=== PATIENT | female | born 1940 | race Caucasian/White ===

== ENCOUNTER 2017-04-13 12:30 | Emergency (ER) | payer MEDICARE ==
--- NOTE | 2017-04-13 13:15 | ERNOTE ---
Abdominal HPI - General Chief Complaint: Abdominal Pain Time Seen by Provider: 04/13/17 12:56 - Immun/Allergies/Home Medications Immunizatons: IMMUNIZATION HX Immunizations Up to Date Yes History of Influenza Vaccine Yes Hx Pneumococcal Vaccination Yes Allergies/Adverse Reactions: Allergies codeine Adverse Reaction (Verified 04/13/17 12:47) Sulfa (Sulfonamide Antibiotics) Adverse Reaction (Verified 04/13/17 12:47) Home Medications: HOME MEDICATIONS Amlodipine Besylate 10 mg PO DAILY 04/13/17 [Last Taken Unknown] Atorvastatin Calcium 40 mg PO HS 04/13/17 [Last Taken Unknown] Citalopram Hydrobromide [Citalopram HBr] 10 mg PO DAILY 04/13/17 [Last Taken Unknown] Insulin Aspart [Novolog] 22 unit SQ ACHS 04/13/17 [Last Taken Unknown] Insulin Glargine,Hum.rec.anlog [Lantus] 68 units SC HS 04/13/17 [Last Taken Unknown] Lisinopril [Prinivil] 10 mg PO DAILY 04/13/17 [Last Taken Unknown] Nitrofurantoin/Nitrofuran Mac [Macrobid] 100 mg PO Q12H #10 cap 04/13/17 [Last Taken Unknown] metFORMIN HCL [Glucophage] 500 mg PO BIDWM 04/13/17 [Last Taken Unknown] - History of Present Illness Narrative: 77-year-old white female presents with abdominal pain. Patient states she's had lower abdomen pain for about one week. The pain is [id number]. It waxes and wanes. It does not go away. She is starting to develop some nausea. No vomiting. No fever or chills. Symptoms are worsening. No genitourinary symptoms. Timing: getting worse Review of Systems - Review of Systems Constitutional: Present: no symptoms reported. Absent: fever, chills EYE: Present: no symptoms reported ENT: Present: no symptoms reported Respiratory: Present: no symptoms reported Cardiology: Present: no symptoms reported Gastrointestinal/Abdominal: Present: nausea, abdominal pain. Absent: vomiting, diarrhea, constipation, eating less, drinking less Genitourinary: Present: no symptoms reported. Absent: frequency, dysuria, hematuria Musculoskeletal: Present: no symptoms reported Skin: Present: no symptoms reported Neurological: Present: no symptoms reported Endocrine: Present: no symptoms reported Hematologic/Lymphatic: Present: no symptoms reported Psych: Present: no symptoms reported All Other Systems: All systems neg except as marked - Patient's Past Medical History Patient History - Medical: Anxiety, Diabetes Type 2 Insulin Dependent Patient History - Cardiac/Respiratory: No pertinent hx Patient History - Cancer: No Hx of Cancer Patient History - Surgical Procedures: Cholecystectomy, , Other Patient History - Other: None LMP (females 10-50): Menopausal - Social History Living Situations: alone Abuse History: No History of abuse Psych History: Hx of Anxiety, Current tx/ever been on anti-depressants or anti- anxiety meds Smoking Status: Former smoker Have you smoked in the past 12 months: No Alcohol Use: none Drug Use: none - Immunizations Immunizations Up to Date: Yes Hx Pneumococcal Vaccination: Yes History of Influenza Vaccine: Yes Physical Exam - Physical Exam General Appearance: Present: wd/wn, alert, no apparent distress Head Exam: Present: normal inspection, no evidence of injury Eye Exam: Normal inspection: bilateral, PERRL: bilateral, EOMI: bilateral Ears, Nose, Throat: Present: normal ENT inspection, dry mucous membranes Neck: Present: normal inspection, nontender Respiratory: Present: no respiratory distress, normal breath sounds, no accessory muscle use, chest nontender, lungs clear Cardiovascular/Chest: Present: regular rate, rhythm, no murmur, normal peripheral pulses Gastrointestinal/Abdominal: Present: normal bowel sounds, tenderness - right lower quadrant Back Exam: Present: normal inspection Extremity Exam: Present: normal inspection Neurological Exam: Present: alert, oriented, normal mood/affect, no motor/ sensory deficits Skin Exam: Present: normal color, warm/dry ED Progress - Results and Orders Patient's Lab Results:: I have reviewed the patient's lab results. - Vital Signs Patient's Vital Signs:: I have reviewed the patient's vital signs. Vital Signs: Vital Signs 04/13/17 12:39 Temperature 36.8 C Pulse Rate 98 Respiratory 16 Rate Blood Pressure 161/80 O2 Sat by Pulse 97 Oximetry - CT/Ultrasound CT/Ultrasound Narrative: CT abdomen and pelvis without contrast per radiologist was reviewed. - Progress/Reassessment Chief Complaint: Abdominal Pain Plan - Plan Plan: Patient's UA was contaminated. She does not want to have catheterization. We will culture the urine. She does have lower abdominal discomfort. She has not had this before. I will place her empirically on antibiotic for urinary tract infection. Advised her drink water. She verbalizes understanding and agrees with this plan. If her pain worsens or she develops systemic signs of illness such as fevers chills or worsening pain she will need to return. Departure - Departure Clinical Impression: Abdominal pain Condition: Good Instructions: Abdominal Pain, Adult, [id number] Referrals: Kaleigh Cardoso DO [Primary Care Provider] - Prescriptions: Nitrofurantoin/Nitrofuran Mac [Macrobid] 100 mg PO Q12H #10 cap
[2017-04-13 13:27] LABS: Hematocrit 44.1 % (37.0-47.0); Hemoglobin 15.3 gm/dL (12.5-16.0); Mean Cell Volume 87.8 fl (78-100); Mean Corpuscular Hemoglobin 30.5 pg (27-31); Mean Corpuscular Hgb Conc 34.7 g/dl (32-36); Mean Platelet Volume 10.6 fl (6.0-9.5); Neutrophil % 57.6 % (42-75.0); Platelet Count 154 K/mm3 (150-450); Red Blood Count 5.02 M/mm3 (4.2-5.4); Red Cell Distribution Width 13.4 % (11.5-14.0); White Blood Count 5.2 K/mm3 (4.0-10.5)
[2017-04-13 13:41] LABS: Albumin * 3.9 gm/dl (3.4-5.0); Anion Gap 20.5 mmol/L (6.8-13.8); BUN/Creatinine Ratio 14.6 (9.0-21.6); Bilirubin, Total 0.5 mg/dL (0.0-1.1); Ca. Corrected For Albumin 9.1 mg/dL (8.4-10.2); Calcium * 9.3 mg/dL (7.9-10.9); Carbon Dioxide 20.8 mmol/L (24-32.6); Potassium 4.3 mmol/L (3.4-4.6); Total Protein 7.9 gm/dL (6.2-8.2)
[2017-04-13 13:42] LABS: Urine Bilirubin Negative (NEGATIVE); Urine Ketone Negative (NEGATIVE); Urine Nitrite Negative (NEGATIVE); Urine Protein 15 mg/dL (NEGATIVE); Urine Specific Gravity 1.015 SP.GR. (1.005-1.010); Urine Urobilinogen Normal (NORMAL)
[2017-04-13 13:49] LABS: Urine Appearance Slightly Cloudy; Urine Blood 10 /ul (NEGATIVE); Urine Color Yellow
[2017-04-13 13:50] LABS: Urine Bacteria 3+; Urine RBC None Seen /hpf (0-5)
[2017-04-13 15:01] VITALS: BP 154/68
== END 2017-04-13 15:26 | disposition home or self-care (01) ==
LOC: ER 12:30
DX: R10.30 Lower abdominal pain, unspecified (principal); E11.9 Type 2 diabetes mellitus without complications; Z79.4 Long term (current) use of insulin; Z87.891 Personal history of nicotine dependence

== ENCOUNTER 2017-11-22 11:51 | Emergency (ER) | payer MEDICARE ==
[2017-11-22 11:58] VITALS: BP 163/98
--- NOTE | 2017-11-22 12:30 | ERNOTE ---
Medical Problem HPI - General Chief Complaint: General Assessment Time Seen by Provider: 11/22/17 12:08 Source: patient Exam Limitations: no limitations - Immun/Allergies/Home Medications Immunizations: IMMUNIZATION HX Immunizations Up to Date Yes History of Influenza Vaccine Yes Hx Pneumococcal Vaccination Yes Allergies/Adverse Reactions: Allergies codeine Adverse Reaction (Verified 11/22/17 11:58) Sulfa (Sulfonamide Antibiotics) Adverse Reaction (Verified 11/22/17 11:58) Home Medications: HOME MEDICATIONS Amlodipine Besylate 10 mg PO DAILY 04/13/17 [Last Taken Unknown] Atorvastatin Calcium 40 mg PO HS 04/13/17 [Last Taken Unknown] Citalopram Hydrobromide [Citalopram HBr] 10 mg PO DAILY 04/13/17 [Last Taken Unknown] Insulin Aspart [Novolog] 22 unit SQ ACHS 04/13/17 [Last Taken Unknown] Insulin Glargine,Hum.rec.anlog [Lantus] 68 units SC HS 04/13/17 [Last Taken Unknown] Lisinopril [Prinivil] 10 mg PO DAILY 04/13/17 [Last Taken Unknown] metFORMIN HCL [Glucophage] 500 mg PO BIDWM 04/13/17 [Last Taken Unknown] Aspirin [Aspirin Enteric Coated] 81 mg PO DAILY 11/22/17 [Last Taken Unknown] Cyclobenzaprine HCl [Flexeril] 10 mg PO HS PRN #10 tab 11/22/17 [Last Taken Unknown] Naproxen [Naprosyn] 500 mg PO BID #60 tablet 11/22/17 [Last Taken Unknown] - History of Present History Narrative: Patient was seen here in the emergency department 10 days ago for a costochondritis chest wall strain. She is continued to try to work through this chronic pain and strain part of her abdominal wall musculature now. She was moving furniture and trying to clean and none are exacerbated the chest wall but also has a muscle strain now in her abdominal musculature. Timing: constant Severity: moderate Review of Systems - Review of Systems Constitutional: Present: See HPI EYE: Present: no symptoms reported ENT: Present: no symptoms reported Respiratory: Present: no symptoms reported Cardiology: Present: no symptoms reported Gastrointestinal/Abdominal: Present: no symptoms reported Genitourinary: Present: no symptoms reported Musculoskeletal: Present: See HPI Skin: Present: no symptoms reported Neurological: Present: no symptoms reported Endocrine: Present: no symptoms reported Hematologic/Lymphatic: Present: no symptoms reported Psych: Present: no symptoms reported - Patient's Past Medical History Patient History - Medical: Anxiety, Diabetes Type 2 Insulin Dependent Patient History - Cardiac/Respiratory: Hypertension, Hyperlipidemia Patient History - Cancer: No Hx of Cancer Patient History - Surgical Procedures: Cholecystectomy, , Other Patient History - Other: None - Social History Living Situations: home Abuse History: No History of abuse Psych History: Hx of Anxiety, Current tx/ever been on anti-depressants or anti- anxiety meds Alcohol Use: none Drug Use: none - Immunizations Immunizations Up to Date: Yes Hx Pneumococcal Vaccination: Yes History of Influenza Vaccine: Yes Physical Exam - Physical Exam Narrative: Patient has palpable tenderness along the lateral abdominal musculature going all the way down to the iliac crest General Appearance: Present: wd/wn, alert, mild distress Head Exam: Present: normal inspection, no evidence of injury Eye Exam: Normal inspection: bilateral, PERRL: bilateral Ears, Nose, Throat: Present: normal ENT inspection, H, normal pharynx Neck: Present: normal inspection, nontender Respiratory: Present: no respiratory distress, normal breath sounds, no accessory muscle use, lungs clear, chest tenderness - tenderness present at the 10th costochondral junction on the right-hand side Cardiovascular/Chest: Present: regular rate, rhythm, no murmur, normal peripheral pulses Gastrointestinal/Abdominal: Present: normal bowel sounds, nontender, nondistended, soft, no organomegaly Rectal Exam: Present: deferred Back Exam: Present: normal inspection, normal range of motion Extremity Exam: Present: normal inspection, non-tender, no edema, normal range of motion Neurological Exam: Present: alert, oriented, normal mood/affect Skin Exam: Present: normal color, warm/dry Lymphatic Exam: Present: no adenopathy ED Progress - Vital Signs Patient's Vital Signs:: I have reviewed the patient's vital signs. Vital Signs: Vital Signs 11/22/17 11:51 Temperature 36.8 C Pulse Rate 91 Respiratory 12 Rate Blood Pressure 163/98 O2 Sat by Pulse 99 Oximetry - Progress/Reassessment Chief Complaint: General Assessment Plan - Plan Plan: Patient be started on a nonsteroidal anti-inflammatory and be given Flexeril that she can take at bedtime. She has been counseled to try to avoid any strenuous activity until these areas have a chance to clear up. 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 Muscle strain of chest wall Qualifiers: Encounter type: subsequent encounter Qualified Code(s): S29.011D - Strain of muscle and tendon of front wall of thorax, subsequent encounter Abdominal wall strain Qualifiers: Encounter type: initial encounter Qualified Code(s): S39.011A - Strain of muscle, fascia and tendon of abdomen, initial encounter - Departure Disposition: Home self-care Condition: Good Instructions: Costochondritis, [id number], Muscle Strain, [id number] Referrals: Kaleigh Cardoso DO [Primary Care Provider] - Prescriptions: Cyclobenzaprine HCl [Flexeril] 10 mg PO HS PRN #10 tab PRN Reason: MUSCLE SPASMS Naproxen [Naprosyn] 500 mg PO BID #60 tablet
== END 2017-11-22 12:36 | disposition home or self-care (01) ==
LOC: ER 11:51
DX: E11.9 Type 2 diabetes mellitus without complications; I10 Essential (primary) hypertension; S29.011D Strain of muscle and tendon of front wall of thorax, subsequent encounter; S39.011A Strain of muscle, fascia and tendon of abdomen, initial encounter; M94.0 Chondrocostal junction syndrome [Tietze]; E78.5 Hyperlipidemia, unspecified; X50.0XXA Overexertion from strenuous movement or load, initial encounter

== ENCOUNTER 2017-11-22 20:55 | Emergency (ER) | payer MEDICARE ==
[2017-11-22] MEDS ORDERED: OXYMETAZOLINE HCL 150 SPRAY BTL ONE (21:02)
[2017-11-22] MEDS ORDERED: LABETALOL HCL 5 MG/ML VIAL IV ONE ×3 (21:10→22:16)
[2017-11-22 21:11] LABS: Hematocrit 43.8 % (37.0-47.0); Hemoglobin 15.8 gm/dL (12.5-16.0); Mean Cell Volume 85.5 fl (78-100); Mean Corpuscular Hemoglobin 30.9 pg (27-31); Mean Corpuscular Hgb Conc 36.1 g/dl (32-36); Mean Platelet Volume 10.4 fl (6.0-9.5); Neutrophil # 2.8 K/mm3 (1.3-6.0); Neutrophil % 53.6 % (42-75.0); Platelet Count 128 K/mm3 (150-450); Red Blood Count 5.12 M/mm3 (4.2-5.4); Red Cell Distribution Width 13.1 % (11.5-14.0); White Blood Count 5.3 K/mm3 (4.0-10.5)
[2017-11-22 21:32] LABS: Albumin * 3.5 gm/dl (3.4-5.0); Anion Gap 16.6 mmol/L (6.8-13.8); BUN/Creatinine Ratio 16.4 (9.0-21.6); Bilirubin, Total 0.5 mg/dL (0.0-1.1); Ca. Corrected For Albumin 9.2 mg/dL (8.4-10.2); Calcium * 9.1 mg/dL (7.9-10.9); Carbon Dioxide 23.6 mmol/L (24-32.6); Potassium 4.2 mmol/L (3.4-4.6); Total Protein 7.2 gm/dL (6.2-8.2)
[2017-11-22] MEDS ORDERED: LORazepam 2 MG/ML DISP.SYRIN IV ONE (21:43)
[2017-11-22] MEDS ORDERED: LORazepam 2 MG/ML DISP.SYRIN ONE (21:46)
--- NOTE | 2017-11-22 22:48 | ERNOTE ---
ENT HPI Date of Service: 11/22/17 Presenting Symptoms: nosebleed Time Seen by Provider: 11/22/17 21:02 Source: patient Exam Limitations: no limitations - Immun/Allergies/Home Medications Immunizations: IMMUNIZATION HX Immunizations Up to Date Yes History of Influenza Vaccine Yes Hx Pneumococcal Vaccination Yes Allergies/Adverse Reactions: Allergies Allergy/AdvReac Type Severity Reaction Status Date / Time codeine AdvReac Verified 11/22/17 11:58 Sulfa (Sulfonamide AdvReac Verified 11/22/17 11:58 Antibiotics) Home Medications: HOME MEDICATIONS Amlodipine Besylate 10 mg PO DAILY 04/13/17 [Last Taken Unknown] Atorvastatin Calcium 40 mg PO HS 04/13/17 [Last Taken Unknown] Citalopram Hydrobromide [Citalopram HBr] 10 mg PO DAILY 04/13/17 [Last Taken Unknown] Insulin Aspart [Novolog] 22 unit SQ ACHS 04/13/17 [Last Taken Unknown] Insulin Glargine,Hum.rec.anlog [Lantus] 68 units SC HS 04/13/17 [Last Taken Unknown] Lisinopril [Prinivil] 10 mg PO DAILY 04/13/17 [Last Taken Unknown] metFORMIN HCL [Glucophage] 500 mg PO BIDWM 04/13/17 [Last Taken Unknown] Aspirin [Aspirin Enteric Coated] 81 mg PO DAILY 11/22/17 [Last Taken Unknown] Cyclobenzaprine HCl [Flexeril] 10 mg PO HS PRN #10 tab 11/22/17 [Last Taken Unknown] Naproxen [Naprosyn] 500 mg PO BID #60 tablet 11/22/17 [Last Taken Unknown] - History of Present Illness Narrative: onset of nose bleed at 8 pm this evening from right nare, bp elevated, patient quite anxious Severity: Present: moderate ENT Location: Present: nose Prearrival Treatment: Present: no prearrival treatment Modifying Factors - Improves: Reports: nothing Modifying Factors - Worsens: Reports: nothing Associated Symptoms - ENT: Reports: denies symptoms Review of Systems - Review of Systems Constitutional: Present: See HPI EYE: Present: no symptoms reported ENT: Present: other - ewpistaxis Respiratory: Present: no symptoms reported Cardiology: Present: no symptoms reported Gastrointestinal/Abdominal: Present: no symptoms reported Genitourinary: Present: no symptoms reported Musculoskeletal: Present: no symptoms reported Skin: Present: no symptoms reported Neurological: Present: no symptoms reported Endocrine: Present: no symptoms reported Hematologic/Lymphatic: Present: no symptoms reported Psych: Present: no symptoms reported All Other Systems: All systems neg except as marked - Narrative Narrative: unremarkable - Patient's Past Medical History Patient History - Medical: Anxiety, Diabetes Type 2 Insulin Dependent Patient History - Cardiac/Respiratory: Hypertension, Hyperlipidemia Patient History - Cancer: No Hx of Cancer Patient History - Surgical Procedures: Cholecystectomy, , Other Patient History - Other: None LMP (females 10-50): Menopausal - Family History Family History:: no untoward family reactions to anesthesia, no familial bleeding tendencies, no family history of clotting disorders, no family history of premature - Social History Living Situations: home Abuse History: No History of abuse Psych History: Hx of Anxiety, Current tx/ever been on anti-depressants or anti- anxiety meds Smoking Status: Never smoker Have you smoked in the past 12 months: No Do you dip or chew tobacco: No Patient requests Smoking Cessation Consult: No Initiate information on Smoking Cessation: No Alcohol Use: none Drug Use: none - Immunizations Immunizations Up to Date: Yes Hx Pneumococcal Vaccination: Yes History of Influenza Vaccine: Yes Physical Exam - Physical Exam General Appearance: Present: moderate distress, crying Head Exam: Present: normal inspection, no evidence of injury Eye Exam: Normal inspection: bilateral, PERRL: bilateral, EOMI: bilateral Ears, Nose, Throat: Present: other - moderate bleeding right nare blediing brisk from anterior right septom Neck: Present: normal inspection, nontender Respiratory: Present: no respiratory distress, normal breath sounds, no accessory muscle use, chest nontender, lungs clear Peripheral Pulses: N=norm/S=strong/W=weak/B=bound/A=absent: Carotid (R): Normal , Carotid (L): Normal, Radial (R): Normal, Radial (L): Normal, Femoral (R): Normal, Femoral (L): Normal, Dorsalis-pedis (R): Normal, Dorsalis-pedis (L): Normal Gastrointestinal/Abdominal: Present: normal bowel sounds, nontender, nondistended, soft, no organomegaly Back Exam: Present: normal inspection, normal range of motion, no CVA tenderness Extremity Exam: Present: normal inspection, non-tender, normal range of motion, no edema Neurological Exam: Present: alert, oriented, normal mood/affect, no motor/ sensory deficits Skin Exam: Present: normal color, warm/dry Lymphatic Exam: Present: no adenopathy ED Progress - Date and Time Seen: Date and Time: 11/22/17 22:44 condition improved bleeding stopped - Results and Orders Patient's Lab Results:: I have reviewed the patient's lab results. - Vital Signs Patient's Vital Signs:: I have reviewed the patient's vital signs. Vital Signs: Vital Signs 11/22/17 11/22/17 11/22/17 20:56 21:37 22:18 Pulse Rate 99 78 77 Respiratory 18 Rate Blood Pressure 184/98 189/94 184/82 O2 Sat by Pulse 99 Oximetry - EKG EKG: NSR EKG read: Interp. by me - Progress/Reassessment Chief Complaint: Nose Bleed Progress:: Improved Procedures Date and Time: patient had anterior right septum cauterizes with silver nitrate and merocel packing placed, patient tolerated procedure well and bleeding resolved Plan - Plan Plan: to be discharged Departure Clinical Impression: Anterior epistaxis, Hypertension - Departure Disposition: Home self-care Condition: Fair Instructions: Nosebleed, [id number]
[2017-11-22 22:51] VITALS: BP 162/82
== END 2017-11-22 22:53 | disposition home or self-care (01) ==
LOC: ER 20:55
DX: R04.0 Epistaxis (principal); I10 Essential (primary) hypertension; E11.9 Type 2 diabetes mellitus without complications; E78.5 Hyperlipidemia, unspecified; F41.9 Anxiety disorder, unspecified; Z79.4 Long term (current) use of insulin